=== PATIENT | female | born 1935 | race Two or more races ===

== ENCOUNTER 2020-01-19 11:45 | Inpatient (IN) | payer OTHER ==
[~2020-01-19] VITALS: Ht 152.4 cm; Wt 90.7 kg
[2020-01-24] MEDS ORDERED: COZAAR50 MG PO (08:26)
[2020-01-24] MEDS ORDERED: LEVOXYL25 MCG PO (08:26)
[2020-01-24] MEDS ORDERED: LIPITOR40 M1 PO (08:27)
[2020-01-24] MEDS ORDERED: TOPROL XL100 M1 PO (08:27)
[2020-01-27] MEDS ORDERED: XARELTO10 MG PO (08:03)
[2020-01-27] MEDS ORDERED: INTEGRA PLUS C1 EACH PO (08:03)
[2020-01-27] MEDS ORDERED: ULTRACET PO (08:03)
== END 2020-01-27 14:30 | DRG 470 ==
LOC: SURH 01-23 11:45 → O/R 01-23 11:45 → SURG 01-24 07:12 → SURH 01-24 08:30 → SURG 01-24 14:36
PROVIDERS: ADMIT Orthopaedic Surgery Sports Medicine; ATTEND Orthopaedic Surgery Sports Medicine
PROC: 0SRD0J9 Replacement of Left Knee Joint with Synthetic Substitute, Cemented, Open Approach (ICD-10-PCS; principal; 2020-01-24 08:30)
DX: M17.12 Unilateral primary osteoarthritis, left knee (principal); I10 Essential (primary) hypertension; E03.8 Other specified hypothyroidism